=== PATIENT | male | born 1955 | race Hispanic/Latino ===

== ENCOUNTER → 2024-01-28 | Outpatient (CLI) | payer OTHER ==
[~2024-01-28] MED LIST: AEC81 PO; HYDR-4060 PO; MECLIZINE PO; PRAVASTATIN PO; TRAM50TA4 PO
== END | disposition home or self-care (01) ==
LOC: RAH 09:13
PROVIDERS: ATTEND Internal Medicine Cardiovascular Disease
DX: Z13.6 Encounter for screening for cardiovascular disorders (principal)
CPT/HCPCS: 75571

== ENCOUNTER 2025-03-16 16:58 | Emergency (ER) | payer OTHER ==
[~2025-03-16] VITALS: Ht 167.6 cm; Wt 71.7 kg
[2025-03-16] MEDS: ORPHENADRINE 60MG/2ML IM ONE (18:39)
[2025-03-16] MEDS: TRIAMCINOLONE ACETONIDE 40 MG/ML 1ML VIAL IM ONE (18:50)
[2025-03-16] MEDS ORDERED: LIDO-15 TP (19:31)
--- NOTE | 2025-03-16 19:31 | ERN ---
ED Note History of Present Illness Stated Complaint: CHRONIC BACK PAIN Chief Complaint: Low Back Pain/Injury Time Seen by MD: 17:34 Time Seen by Midlevel: 17:34 Dictation: The patient is a 69-year-old male with a history of hypertension, hyperlipidemia who presents to the emergency department with complaints of mid lower back pain. Patient reports he has been having this pain for over 40 years but three weeks ago it became worse. Patient denies any recent trauma. Denies any urinary or fecal incontinence, denies any paresthesia. Allergies: Uncoded Allergies: NKA (Allergy, Unknown, 04/10/14) Home Meds Active Scripts Hydrocodone/Acetaminophen (Hydrocodon-Acetaminophen 5-325) 1 Each Tablet, 1-2 TAB PO Q4H for PAIN, #40 TAB Prov:LEONILA WAYNE MD 04/12/14 Reported Medications [Meclizine] No Conflict Check, 25 MG PO TID PRN for DIZZINESS 04/11/14 Tramadol Hcl (Tramadol HCl) 50 Mg Tablet, 50 MG PO TID PRN for PAIN, TAB 04/11/14 Aspirin (ASPIRIN 81 MG ECTAB) 81 Mg Ectab, 81 MG PO EVERY THIRD DAY, TAB.EC 04/11/14 [Pravastatin] No Conflict Check, 20 MG PO HS 04/11/14 Past Medical History Past Medical History: High Cholesterol, Hypertension Additional Past Medical Hx: CHRONIC BACK PAIN Surgical History: Cholecystectomy, Other Surgical History Other: HEMMORHOIDS RN Note Reviewed/Agreed w/PFSH: Yes Review of System Dictation Constitutional: Negative for fever,chills, and weight loss Eyes: Negative for injury, pain,redness, and discharge ENT: Negative for injury,pain or swelling Cardiovascular: Negative for chest pain, palpitations, and edema Respiratory: Negative for shortness of breath, cough, and wheezing, Abdomen/GI: Negative for abdominal pain, nausea, vomiting, diarrhea, and constipation Back: Positive for low back pain : Negative for injury, bleeding and discharge MS/Extremity: Negative for injury and deformity Skin: Negative for rash, and discoloration Neuro: Negative for headache, weakness, numbness, tingling, and seizure Psych: Negative for suicide ideation, homicidal ideation, and hallucinations Initial Vital Sign VS Vital Signs Date Time Temp Pulse Resp B/P (MAP) Pulse Ox O2 Delivery O2 Flow Rate FiO2 03/16/25 17:00 98.2 85 16 151/70 97 Room Air 0 03/16/25 18:19 21 Physical Exam Dictation Vital Signs reviewed General Appearance: Alert, oriented x 3, no acute distress, well developed, nourished. Head and Face: non-traumatic. Eyes: PERRL, pink conjunctivas, eyelid no trauma, anterior chamber with arcus senilis. Ears: Pinnas intact and no signs of trauma or erythema ear canals clear and no discharge TM no erythema Nose: No discharge, no bleeding. Oropharynx: Mouth normal, tongue pink. pharynx clear,no erythema, tonsils no exudates, no abscesses noted, mucous membrane moist Neck: Supple, non-tender, no thyromegaly, no masses, no JVD, no bruits Breast:Deferred Chest:No tenderness, no crepitus, no paradoxical movement, no retractions Lungs:Clear, well-ventilated, symmetric, no rales, no wheezing, no rhonchi, no stridor, good breath sounds bilaterally Heart: Regular rate, regular rhythm, no murmur, no gallops Vascular: no peripheral edema, Abdomen: Soft, positive bowel sounds, nondistended, no guarding, nontender, no rebound, no masses no hepatomegaly, no splenomegaly, no Lopez's sign, no hernias. Rectal: Deferred Genital: Deferred Neurological: Normal speech, motor function intact, sensory function intact Musculoskeletal: Neck nontender, full range of motion, mid desizing machine back tender, full range of motion, no deformities Extremities: nontender, full range of motion Skin: Color pink, dry, no turgor, no rash, no lacerations, no abrasions, no contusions. Lymphatic: Deferred Results (Laboratory/Radiology) Labs Reviewed?: Yes ED Course ED Course Orders Procedure Category Date Status Time Orphenadrine Citrate PHA 03/16/25 Complete (Norflex) 18:30 Triamcinolone Acet PHA 03/16/25 Complete 40mg/Ml 1ml (Kenalog 18:30 Ketorolac 60mg/2ml PHA 03/16/25 Complete (Toradol 60mg/2ml) 18:30 Current Medications Medications (Trade) Dose Ordered Sig/Timo Route PRN Reason Start Time Stop Time Status Last Admin Dose Admin Ketorolac Tromethamine (toRADol 60MG/ 2ML) 30 mg ONCE ONCE IM 03/16/25 18:30 03/16/25 18:31 DC 03/16/25 18:40 Orphenadrine Citrate (Norflex) 60 mg ONCE ONCE IM 03/16/25 18:30 03/16/25 18:31 DC 03/16/25 18:39 Triamcinolone Acetonide (Kenalog 40) 40 mg ONCE ONCE IM 03/16/25 18:30 03/16/25 18:31 DC 03/16/25 18:50 Vital Signs Date Time Temp Pulse Resp B/P (MAP) Pulse Ox O2 Delivery O2 Flow Rate FiO2 03/16/25 18:19 98.1 80 16 150/65 98 Room Air* 0 21 03/16/25 17:00 98.2 85 16 151/70 97 Room Air 0 Medical Decision Making MDM The patient is a 69-year-old male with a history of hypertension, hyperlipidemia who presents to the emergency department with complaints of mid lower back pain. Patient reports he has been having this pain for over 40 years but three weeks ago it became worse. Patient denies any recent trauma. Denies any urinary or fecal incontinence, denies any paresthesia. Patient is feeling better after medications treatment. Patient neurovascularly intact. Pain is chronic. Reports he has been have multiple imaging with PCP. Vital signs are stable. Patient will be discharged to follow up with PCP. Vital signs are stable. Differential diagnosis: Lumbar sprain, chronic back pain, back contusion Need for hospitalization: Patient does not meet criteria for hospitalization. There are no social concerns with this patient. DX & DISP Disposition: Discharge Departure Impression: Primary Impression: Chronic back pain Condition: Stable Scripts Lidocaine HCl (Lidocaine HCl) 4 % Adh..patch 1 PATCH TP DAILY for 10 Days, #10 PATCH 0 Refills Prov: VALERIO TORIBIO JEWISH HISTORY PROFESSOR 03/16/25 Additional Instructions: Follow up with your primary doctor in 1-2 days. If anything worsens please return to ER. FOLLOW-UP WITH PRIMARY CARE PROVIDER IN 1 TO 2 DAYS. TAKE MEDICATIONS DIRECTED HERE IN THE EMERGENCY ROOM. OKAY TO CONTINUE HOME MEDICATIONS UNLESS OTHERWISE DISCUSSED DURING YOUR VISIT IN THE EMERGENCY ROOM TODAY. RETURN TO YOUR NEAREST EMERGENCY ROOM IF SYMPTOMS WORSEN OR IF THERE IS NO IMPROVEMENT. CALL 911 IF YOU NEED IMMEDIATE ASSISTANCE. TAKE TYLENOL [id number] NEEDED AND IF NO CONTRAINDICATIONS ARE PRESENT. INCREASE ORAL HYDRATION. A WOUND CULTURE OR URINE CULTURE WAS ORDERED HERE IN THE EMERGENCY ROOM DEPARTMENT PLEASE FOLLOW-UP WITH PRIMARY CARE PROVIDER AND ADVISE THEM TO GET REPEAT PORTS FROM OUR FACILITY. IF YOU HAD ANY SOLOMON WRAP/SPLINTS THAT WERE APPLIED HERE, PLEASE DO NOT REMOVE THEM UNTIL YOU SEE YOUR PRIMARY CARE OR SPECIALTY. Referrals: TERA ABERNATHY (PCP) Time of Disposition: 19:30 I have reviewed the case, and I agree with, Diagnosis and Plan VALERIO TORIBIO JEW[employer] HISTORY PROFESSOR Mar 16, 2025 19:31
[2025-03-16 19:32] VITALS: BP 150/65; PULSE 76; RESP 16; TEMP 98.1; O2SAT 98
== END 2025-03-16 19:36 | disposition home or self-care (01) ==
LOC: EDH 16:58
DX: G89.29 Other chronic pain (principal); M54.50 Low back pain, unspecified; E78.00 Pure hypercholesterolemia, unspecified; I10 Essential (primary) hypertension; Z90.49 Acquired absence of other specified parts of digestive tract
CPT/HCPCS: 99284; 96372 ×3; J1885; J3301; J2360